=== PATIENT | female | born 1995 | race Hispanic/Latino ===

== ENCOUNTER 2018-07-14 13:20 | Observation (INO) | payer OTHER, MEDICAID ==
[~2018-07-14] VITALS: Ht 154.9 cm; Wt 64.9 kg
[2018-07-14 15:34] VITALS: BP 110/64
== END 2018-07-14 16:09 | disposition home or self-care (01) ==
LOC: EDH 13:20 → LDH 13:21
PROVIDERS: ADMIT Obstetrics & Gynecology; ATTEND Obstetrics & Gynecology
DX: O42.913 Preterm premature rupture of membranes, unspecified as to length of time between rupture and onset of labor, third trimester (principal); Z3A.36 36 weeks gestation of pregnancy
CPT/HCPCS: 82120; 99284; G0378 ×3